=== PATIENT | female | born 1975 | race Two or more races ===

== ENCOUNTER 2017-12-18 06:23 | Emergency (ER) | payer MEDICAID, OTHER ==
[~2017-12-18] VITALS: Ht 157.5 cm; Wt 79.8 kg
[2017-12-18] MEDS ORDERED: NKM (06:32)
[2017-12-18 06:46] VITALS: BP 121/66
--- NOTE | 2017-12-18 06:53 | Emergency Room Report ---
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 Denies any abdominal pain denies any chest pain or shortness of breath Denies any dysuria or frequency Denies any fevers or chills Patient points to the left lateral hip area for the discomfort pain is worse with touch no obvious swelling or redness She does feel that bending downwards and standing up, and walking does increase some of the discomfort Allergies: Coded Allergies: No Known Allergies (Unverified , 12/18/17) Patient History Past Medical History: see triage record Pertinent Family History: none Last Menstrual Period: 12/17/17 Now: No Reviewed Nursing Documentation: PMH: Agreed; PSxH: Agreed Nursing Documentation-PMH Past Medical History: No Stated History Review of Systems All Other Systems: negative except mentioned in HPI Physical Exam Vital Signs Date Time Temp Pulse Resp B/P (MAP) Pulse Ox O2 Delivery O2 Flow Rate FiO2 12/18/17 06:27 98.0 81 16 121/66 97 Room Air 98.1 Sp02 EP Interpretation: reviewed, normal General Appearance: well appearing, no apparent distress Head: normocephalic, atraumatic Eyes: bilateral eye PERRL, bilateral eye EOMI ENT: hearing grossly normal, normal pharynx Neck: supple Respiratory: lungs clear, no rhonchi Cardiovascular #1: regular rate, rhythm, no edema Gastrointestinal: non tender, soft, no mass Genitourinary: no CVA tenderness Musculoskeletal: other - Patient has discomfort on palpation of the left hip, midline back is nontender, patient has free mobility of the left femur otherwise , no signs of any septic joint evertin and inverting the left leg causes some minimal discomfort Neurologic: alert, oriented x3, responsive, engineering secretary III-XII nml as tested, motor strength/tone normal Skin: normal color, no rash Lymphatic: no adenopathy Medical Decision Making Diagnostic Impression: Primary Impression: Hip pain, left ER Course Multiple differentials including but not limited to orthopedic pathology, septic joint, ligamental/musculoskeletal pathology entertained Patient does not appear septic or toxic appears to have fairly specific discomfort at the hip joint, possible sprain/strain of that joint. Patient will have initial conservative attempt with anti-inflammatory. Follow-up closely with her primary physician is recommended Last Vital Signs Date Time Temp Pulse Resp B/P (MAP) Pulse Ox O2 Delivery O2 Flow Rate FiO2 12/18/17 06:46 98.1 81 16 121/66 97 Room Air 98.1 Status: unchanged Disposition: HOME, SELF-CARE Condition: Stable Scripts Ibuprofen* (MOTRIN*) 600 Mg Tablet 600 MG ORAL Q8H PRN for For Pain, #20 TAB 0 Refills Prov: Maninder Victoria DO 12/18/17 Additional Instructions: Patient is provided with the discharge instructions notified to follow up with primary doctor in the next 2-3 days otherwise return to the er with any worsening symptoms. Please note that this report is being documented using [employer] technology. This can lead to erroneous entry secondary to incorrect interpretation by the dictating instrument. Maninder Victoria DO Dec 18, 2017 06:53
[2017-12-18] MEDS ORDERED: IBUPROFEN600 MG ORAL (07:23)
[2017-12-18 07:32] VITALS: BP 121/66
== END 2017-12-18 07:32 | disposition home or self-care (01) ==
LOC: EMR 06:52
DX: M25.552 Pain in left hip (principal)
CPT/HCPCS: 99283

== ENCOUNTER 2020-10-15 17:22 | Emergency (ER) | payer MEDICAID, OTHER ==
[~2020-10-15] VITALS: Ht 157.5 cm; Wt 79.8 kg
[~2020-10-15 17:22] MED LIST: IBUPROFEN600 MG ORAL; NKM
--- NOTE | 2020-10-15 18:28 | Emergency Room Report ---
History of Present Illness General Chief Complaint: Skin Rash/Abscess Source: Patient Present Illness HPI 45-year-old female presents to the emergency department complaining of a nonpainful itchy rash that has been progressive to the face and back of the ears x2 weeks. He denies significant past medical history. Pt. denies fevers, chills or swollen tender lymph nodes. Denies lesions/rashes elsewhere on the body. Denies new medications or body washes or creams. Denies swelling of the lips, tongue , throat or airway. Denies wheezing, or shortness of breath. Denies recent travel, recent illness or ill contacts. denies blisters, oral lesions, or sloughing of the skin. Social: pt. uses tobacco. Allergies: Coded Allergies: No Known Allergies (Unverified , 12/18/17) COVID-19 Screening Contact w/high risk pt: No Experienced COVID-19 symptoms?: No COVID-19 Testing performed RV REPAIRER: No Patient History Past Medical History: see triage record Past Surgical History: none Pertinent Family History: none Now: No Reviewed Nursing Documentation: PMH: Agreed; PSxH: Agreed Nursing Documentation-PMH Past Medical History: No Stated History Review of Systems All Other Systems: negative except mentioned in HPI Physical Exam Vital Signs Date Time Temp Pulse Resp B/P (MAP) Pulse Ox O2 Delivery O2 Flow Rate FiO2 10/15/20 17:34 98.8 100 18 127/82 (97) 99 Room Air Medical Decision Making PA Attestation Dr. Daniels is my supervising Physician whom patient management has been discussed with. Diagnostic Impression: Primary Impression: Rash and other nonspecific skin eruption ER Course 45-year-old female presents to the emergency department complaining of a nonpainful itchy rash that has been progressive to the face and back of the ears x2 weeks. He denies significant past medical history. Pt. denies fevers, chills or swollen tender lymph nodes. Denies lesions/rashes elsewhere on the alex dy. Denies new medications or body washes or creams. Denies swelling of the lips, tongue , throat or airway. Denies wheezing, or shortness of breath. Denies recent travel, recent illness or ill contacts. denies blisters, oral lesions, or sloughing of the skin. Social: pt. uses tobacco. Ddx considered but are not limited to cellulitis, scabies, shingles, varicella, dermatitis, urticaria, eczema, tinea, viral exanthem, SJS Vital signs: are WNL, pt. is afebrile H&PE are most consistent with dermatitis: eczema vs. tinea.--No blisters or vesicles, no evidence of acute impending airway compromise or anaphylaxis. ORDERS: none required at this time, the diagnosis is clinical ED INTERVENTIONS: None required at this time. DISCHARGE: At this time pt. is stable for d/c to home. Will provide printed patient care instructions, and any necessary prescriptions. Care plan and follow up instructions have been discussed with the patient prior to discharge. Last Vital Signs Date Time Temp Pulse Resp B/P (MAP) Pulse Ox O2 Delivery O2 Flow Rate FiO2 10/15/20 17:34 98.8 100 18 127/82 (97) 99 Room Air Disposition: HOME, SELF-CARE Condition: Stable Patient Instructions: Eczema, Rash Additional Instructions: Take medications as directed. Follow up with a Primary Care Provider in 3-5 days for DERMATOLOGY REFERRAL, even if your symptoms have resolved. Return sooner to ED if new symptoms occur, or current symptoms become worse. - Please note that this Emergency Department Report was dictated using [employer] Systemscleaning attendant technology software, occasionally this can lead to erroneous entry secondary to interpretation by the dictation equipment. Maryan Thakur Oct 15, 2020 18:28
[2020-10-15] MEDS ORDERED: TRIAMCINOLONE A15 G1 TP (18:29)
[2020-10-15] MEDS ORDERED: NIZORAL 2% C1 APPLIC TOPIC (18:29)
[2020-10-15 18:37] VITALS: BP 127/82
--- NOTE | 2020-10-15 18:39 | NUR ---
ER DISCHARGE NOTE: Patient is cleared to be discharged per ERMD, pt is aox4, on room air, with stable vital signs. pt was given dc and prescription instructions, pt was able to verbalize understanding. pt is able to ambulate with steady gait. pt took all belongings.
--- NOTE | 2020-10-15 18:40 | NUR ---
ED Nurse Note: pts had a rash around her mouth and on her face and ears x2 weeks
== END 2020-10-15 18:41 | disposition home or self-care (01) ==
LOC: EMR 17:55
DX: R21 Rash and other nonspecific skin eruption (principal)
CPT/HCPCS: 99281